=== PATIENT | male | born 1985 | race American Indian/Alaskan Native ===

== ENCOUNTER 2019-11-07 22:34 | Emergency (ER) | payer SELFPAY ==
[2019-11-07 23:48] VITALS: BP 123/77
[2019-11-08] MEDS ORDERED: IBUPROFEN 600 MG TAB PO ONE (00:41)
[2019-11-08] MEDS ORDERED: oxyCODONE /ACETAMINOPHEN 5-325MG TAB PO ONE (00:41)
[2019-11-08] MEDS ORDERED: SULFAMETHOXAZOLE/TRIMETHOPRIM 800/160MG DS TAB PO ONE (00:41)
[2019-11-08] MEDS ORDERED: CLINDAMYCIN 300 MG CAP PO ONE (00:41)
[2019-11-08] MEDS ORDERED: ONDANSETRON 4 MG ODT TAB PO ONE (00:41)
--- NOTE | 2019-11-08 01:37 | Emergency Department Report ---
ED General Adult HPI - General Chief complaint: Skin/Abscess/Foreign Body Stated complaint: PAIN Source: patient Mode of arrival: Ambulatory Limitations: No Limitations - History of Present Illness Initial comments: Patient is a 34-year-old -Iranian male with no past medical history presents to the ED with complaint of acute onset persistent severe painful swollen erythematous maculopapular rash with fluctuance and purulent discharge on the left inguinal area for the last 3 days. Patient states that any movement or ambulation makes the pain worse. Patient states that 2 hours prior to arrival in the ED, the purulent discharge was significantly large from the wound. Patient denies fever, chills, nausea, vomiting, diarrhea, dizziness, syncope, numbness and tingling or weakness of left leg, chest pain, shortness of breath, testicular pain, dysuria, hematuria, abdominal pain or low back pain. MD Complaint: left inguinal abscess; swollen painful rash with purulent discharge -: Sudden, days(s) (3) Location: pelvis (left inguinal area) Radiation: non-radiation Severity scale (0 -10): 8 Quality: aching, sharp Consistency: constant Improves with: none Worsens with: movement Associated Symptoms: denies other symptoms, rash (Erythematous maculopapular painful swelling fluctuant rash with thick purulent discharge in the left inguinal area). denies: confusion, chest pain, diaphoresis, fever/chills, headaches, loss of appetite, malaise, nausea/vomiting, shortness of breath, weakness, other Treatments Prior to Arrival: none - Related Data Previous Rx's Medication Instructions Recorded Last Taken Type Acetaminophen/Codeine [Tylenol 1 tab PO Q6H PRN #12 tab 11/08/19 Unknown Rx /Codeine # 3 tab] Clindamycin [Clindamycin CAP] 300 mg PO Q8HR #60 capsule 11/08/19 Unknown Rx Ibuprofen [Motrin] 600 mg PO Q8H PRN #24 tablet 11/08/19 Unknown Rx Ondansetron [Zofran Odt] 4 mg PO Q6HR PRN #15 tab.rapdis 11/08/19 Unknown Rx Sulfamethoxazole/Trimethoprim 1 each PO Q12H #20 tablet 11/08/19 Unknown Rx [Bactrim DS TAB] Allergies Allergy/AdvReac Type Severity Reaction Status Date / Time No Known Allergies Allergy Unverified 11/07/19 23:52 ED Review of Systems ROS: Stated complaint: PAIN Other details as noted in HPI Constitutional: denies: chills, fever Eyes: denies: eye pain, eye discharge, vision change ENT: denies: ear pain, throat pain Respiratory: denies: cough, shortness of breath, wheezing Cardiovascular: denies: chest pain, palpitations Endocrine: no symptoms reported Gastrointestinal: denies: abdominal pain, nausea, diarrhea Genitourinary: other (Painful swelling erythematous maculopapular rash on left inguinal area with purulent discharge). denies: urgency, dysuria, testicular pain Musculoskeletal: denies: back pain, joint swelling, arthralgia Skin: rash (Erythematous maculopapular fluctuant rash with purulent discharge in the left inguinal area), change in color. denies: lesions Neurological: denies: headache, weakness, paresthesias Psychiatric: denies: anxiety, depression Hematological/Lymphatic: denies: easy bleeding, easy bruising ED Past Medical Hx - Past Medical History Previous Medical History?: No - Surgical History Past Surgical History?: No - Social History Smoking Status: Current Every Day Smoker Substance Use Type: None - Medications Home Medications: Home Medications Medication Instructions Recorded Confirmed Last Taken Type Acetaminophen/Codeine [Tylenol 1 tab PO Q6H PRN #12 tab 11/08/19 Unknown Rx /Codeine # 3 tab] Clindamycin [Clindamycin CAP] 300 mg PO Q8HR #60 capsule 11/08/19 Unknown Rx Ibuprofen [Motrin] 600 mg PO Q8H PRN #24 tablet 11/08/19 Unknown Rx Ondansetron [Zofran Odt] 4 mg PO Q6HR PRN #15 tab.rapdis 11/08/19 Unknown Rx Sulfamethoxazole/Trimethoprim 1 each PO Q12H #20 tablet 11/08/19 Unknown Rx [Bactrim DS TAB] ED Physical Exam - General Limitations: No Limitations General appearance: alert, in no apparent distress - Head Head exam: Present: atraumatic, normocephalic, normal inspection - Eye Eye exam: Present: normal appearance, PERRL Pupils: Present: normal accommodation - ENT ENT exam: Present: normal exam, normal orophraynx, mucous membranes moist, TM's normal bilaterally, normal external ear exam - Neck Neck exam: Present: normal inspection, full ROM. Absent: tenderness - Respiratory Respiratory exam: Present: normal lung sounds bilaterally. Absent: respiratory distress, wheezes, rales, stridor, chest wall tenderness, accessory muscle use - Cardiovascular Cardiovascular Exam: Present: regular rate, normal rhythm, normal heart sounds. Absent: systolic murmur, diastolic murmur, rubs, gallop - GI/Abdominal GI/Abdominal exam: Present: soft, normal bowel sounds. Absent: tenderness, guarding, rebound, hyperactive bowel sounds, hypoactive bowel sounds - Extremities Exam Extremities exam: Present: normal inspection, full ROM, normal capillary refill - Back Exam Back exam: Present: normal inspection, full ROM. Absent: tenderness, CVA tenderness (R), CVA tenderness (L), muscle spasm, paraspinal tenderness, vertebral tenderness - Neurological Exam Neurological exam: Present: alert, oriented X3, CN II-XII intact, normal gait, reflexes normal - Psychiatric Psychiatric exam: Present: normal affect, normal mood - Skin Skin exam: Present: warm, dry, intact, rash (Erythematous maculopapular fluctuant severely tender rash in the left inguinal area with purulent discharge), erythema ED Course Vital Signs 11/07/19 23:47 Temperature 98.3 F Pulse Rate 77 Respiratory 18 Rate Blood Pressure 123/77 O2 Sat by Pulse 100 Oximetry - I & D Left Groin Type of Procedure: Simple Site: Left inguinal area Blade Size: 11 I & D Procedure: betadine prep Progress: The fluctuant rash on left inguinal area was cleaned and local anesthesia lidocaine 1% solution applied around the wound after cleaning it with normal saline and Betadine solutions. The wound was then opened further with a size 11 scalpel blade. Thick purulent discharge emanated from the wound and the wound was extensively debrided and dressed appropriately. Patient tolerated the procedure well. Patient was discharged home on pain medications and antibiotics and advised to follow-up with his primary care physician in 7 to 10 days for reevaluation or return to the ED immediately if symptoms get worse. ED Medical Decision Making - Medical Decision Making This is a 34-year-old -Iranian male with no past medical history presents to the ED with complaint of acute onset persistent severe painful swollen erythematous maculopapular rash with fluctuance and purulent discharge on the left inguinal area for the last 3 days. Patient states that any movement or ambulation makes the pain worse. Patient states that 2 hours prior to arri annabel in the ED, the purulent discharge was significantly large from the wound. In the ED, patient is alert and oriented x3 and is not in distress. Patient was treated for pain in the ED and also given initial oral antibiotics in the ED. The wound was then drained appropriately after the area was locally anesthetized. Patient tolerated the procedure well. The wound was then debrided extensively and dressed appropriately. Patient will discharge home on pain medications and oral antibiotics and advised to follow-up with his primary care physician in 7 to 10 days for reevaluation or return to the ED immediately if symptoms get worse. - Differential Diagnosis cellulitis; abscess; folliculitis; lymphadenopathy Critical care attestation.: If time is entered above; I have spent that time in minutes in the direct care of this critically ill patient, excluding procedure time. ED Disposition Clinical Impression: Cellulitis of left groin, Acute folliculitis, Cutaneous abscess of groin Disposition: TO HOME OR SELFCARE Is pt being admited?: No Does the pt Need Aspirin: No Condition: Stable Instructions: Abscess (ED), Folliculitis (ED), Cellulitis (ED) Additional Instructions: Take medication with food, drink plenty of fluids and follow-up with your primary care physician in 7 to 10 days for reevaluation. Return to the ED immediately if symptoms get worse. Prescriptions: Sulfamethoxazole/Trimethoprim [Bactrim DS TAB] 1 each PO Q12H #20 tablet Clindamycin [Clindamycin CAP] 300 mg PO Q8HR #60 capsule Ibuprofen [Motrin] 600 mg PO Q8H PRN #24 tablet PRN Reason: Pain Acetaminophen/Codeine [Tylenol /Codeine # 3 tab] 1 tab PO Q6H PRN #12 tab PRN Reason: Pain , Severe (7-10) Ondansetron [Zofran Odt] 4 mg PO Q6HR PRN #15 tab.rapdis PRN Reason: Nausea Referrals: [facility] [Provider Group] - 7-10 days Forms: Work/School Release Form(ED) Time of Disposition: 01:34 Print Language: SYRIAC
== END 2019-11-08 02:00 | disposition home or self-care (01) ==
LOC: ED 22:34
DX: L02.211 Cutaneous abscess of abdominal wall (principal); L03.311 Cellulitis of abdominal wall; L73.8 Other specified follicular disorders
CPT/HCPCS: 99282; Q0162